=== PATIENT | male | born 1975 | race Caucasian/White ===

== ENCOUNTER 2023-11-11 10:41 | Emergency (ER) | payer OTHER ==
[~2023-11-11] VITALS: Ht 170.2 cm; Wt 136.4 kg
[~2023-11-11 10:41] MED LIST: ALEVE 220MG220 MG PO
[2023-11-11 10:47] VITALS: TEMP 98.6
[2023-11-11 11:00] LABS: BASO % 0.2 % (0.0-2.0); EOS # 0.1 K/mm3 (0.0-0.7); EOS % 0.6 % (0.0-4.0); GRAN # 10.4 K/mm3 (1.4-6.5); GRAN % 84.2 % (42.2-75.2); HEMATOCRIT 45.9 % (42.0-52.0); LYMPH # 1.3 K/mm3 (1.2-3.4); LYMPH % 10.4 % (20.0-51.0); MEAN CELL VOLUME 84 fl (80.0-100.0); MEAN CORPUSCULAR HEMOGLOBIN 27 pg (27-31); MEAN CORPUSCULAR HGB CONC 33 g/dl (33.0-37.0); MEAN PLATELET VOLUME 10.1 fl (7.4-10.4); MONO # 0.5 K/mm3 (0.1-0.6); MONO % 4.3 % (1.7-9.3); PLATELET COUNT 273 K/mm3 (130-400); RED BLOOD COUNT 5.48 M/mm3 (4.20-5.60); REDCELL DISTRIBUTION WIDTH-CV 12.6 % (11.5-14.5)
[2023-11-11 11:07] LABS: INR 1.1 (0.8-3.0); PROTHROMBIN TIME 12.2 SECONDS (9.7-12.8)
[2023-11-11 11:10] LABS: PARTIAL THROMBOPLASTIN TIME 32.1 SECONDS (26.0-37.0)
[2023-11-11 11:17] LABS: ALANINE AMINOTRANSFERASE 26 U/L (0-55); ALKALINE PHOSPHATASE 72 U/L (40-150); ANION GAP 10 mmol/L (7-16); AST,SGOT 20 U/L (5-34); BILIRUBIN,TOTAL 0.8 mg/dL (0.2-1.2); BLOOD UREA NITROGEN 11 mg/dL (9-21); CALCIUM 9.6 mg/dL (8.4-10.2); CARBON DIOXIDE 25 mmol/L (22-29); CHLORIDE 105 mmol/L (98-107); CREATININE, serum 1.09 mg/dL (0.72-1.25); GLUCOSE 132 mg/dL (70-99); LIPASE 46 U/L (8-78); POTASSIUM 4.2 mmol/L (3.5-4.5); SODIUM 140 mmol/L (136-145); TOTAL PROTEIN 7.7 gm/dL (6.2-8.1)
[2023-11-11 11:23] LABS: TROPONIN-I < 0.010 ng/mL (0.00-0.033)
[2023-11-11] MEDS ORDERED: ZITHROMAX Z PA250 MG PO (13:54)
[2023-11-11 14:10] VITALS: BP 130/91; PULSE 93
== END 2023-11-11 14:16 | disposition home or self-care (01) ==
LOC: COL.ER 10:41
PROVIDERS: Emergency Medicine
DX: J84.9 Interstitial pulmonary disease, unspecified (principal)
CPT/HCPCS: Q9967